=== PATIENT | female | born 1935 | race Caucasian/White ===

== ENCOUNTER → 2016-07-05 | Outpatient (CLI) | payer MEDICARE ==
[2015-08-30 13:25] VITALS: BP 116/63
[~2016-07-05] MED LIST: ALEN70TA5 PO; AMIT25TA PO; ASCO100T4 PO; ASPI-482 PO; ATOR40TA59 PO; BUDE0.5A NEB; CALC-9 PO; CARV3.122 PO; CHOL2000 PO; COPP2CAP PO; ESTR0.62 PO; FORM20VI IH; FURO20TA3 PO; HYDR-2163 PO; IPRA0.2S5 NEB; LEVO100T5 PO; LUTE40CA PO; MAGN400T22 PO; MULT1CAP15 PO; OMEG300C PO; SIMV20TA3 PO; TIOT18CA IH; UBIQ100C PO; VENTOLIN HFA18 GM INH; VIT1CAPS12 PO; ZEAX100P MC; ZINC50TA2 PO
== END | disposition home or self-care (01) ==
LOC: LAB 16:32
PROVIDERS: ATTEND Family Medicine
DX: E11.65 Type 2 diabetes mellitus with hyperglycemia (principal)
CPT/HCPCS: 36415; 83036

== ENCOUNTER → 2016-08-13 | Outpatient (CLI) | payer MEDICARE ==
[2015-08-30 13:25] VITALS: BP 116/63
== END | disposition home or self-care (01) ==
LOC: PMGWOUND 12:33
PROVIDERS: ATTEND Emergency Medicine Undersea and Hyperbaric Medicine
DX: I70.245 Atherosclerosis of native arteries of left leg with ulceration of other part of foot (principal); E11.621 Type 2 diabetes mellitus with foot ulcer; L97.521 Non-pressure chronic ulcer of other part of left foot limited to breakdown of skin; I25.10 Atherosclerotic heart disease of native coronary artery without angina pectoris; E78.5 Hyperlipidemia, unspecified; J43.9 Emphysema, unspecified; I50.22 Chronic systolic (congestive) heart failure; E11.51 Type 2 diabetes mellitus with diabetic peripheral angiopathy without gangrene; Z87.891 Personal history of nicotine dependence
CPT/HCPCS: 93923

== ENCOUNTER → 2016-08-27 | Outpatient (CLI) | payer MEDICARE ==
[2015-08-30 13:25] VITALS: BP 116/63
== END | disposition home or self-care (01) ==
LOC: PMGWOUND 12:29
PROVIDERS: ATTEND Emergency Medicine Undersea and Hyperbaric Medicine
DX: I70.245 Atherosclerosis of native arteries of left leg with ulceration of other part of foot (principal); E11.622 Type 2 diabetes mellitus with other skin ulcer; L97.521 Non-pressure chronic ulcer of other part of left foot limited to breakdown of skin; I25.10 Atherosclerotic heart disease of native coronary artery without angina pectoris; E11.51 Type 2 diabetes mellitus with diabetic peripheral angiopathy without gangrene; J43.9 Emphysema, unspecified; E78.5 Hyperlipidemia, unspecified; Z87.891 Personal history of nicotine dependence
CPT/HCPCS: 99212

== ENCOUNTER → 2016-10-28 | Outpatient (CLI) | payer MEDICARE ==
[2015-08-30 13:25] VITALS: BP 116/63
[~2016-10-28] MED LIST changes: -UBIQ100C PO; +UBIQ100C3 PO
[2016-10-28 16:09] LABS: CREATININE 0.9 mg/dL (0.6-1.0); GFR 60.2
[2016-10-29 07:28] LABS: RHEUMATOID FACTOR <10.0 IU/mL (0.0-13.9)
[2016-10-29 10:22] LABS: VITAMIN D25(OH)TOTAL 44.5 ng/mL (30.0-100.0)
== END | disposition home or self-care (01) ==
LOC: LAB 14:45
PROVIDERS: ATTEND Psychiatry & Neurology Neurology
DX: R52 Pain, unspecified (principal)
CPT/HCPCS: 36415; 82306; 82565; 82607; 84520; 85651; 86431

== ENCOUNTER → 2016-10-31 | Outpatient (CLI) | payer MEDICARE ==
[2015-08-30 13:25] VITALS: BP 116/63
--- NOTE | 2016-10-31 17:33 | RAD ---
CT of the thoracic spine without contrast, 10/31/2009: History: Osteoarthritis, pain Noncontrast scans were obtained with multiplanar reconstructions produced. There is a mild T9 vertebral compression fracture which is unchanged since a CT chest images from 06/06/2015. The other thoracic vertebral heights are well-maintained. There are mild scattered anterior spurs. There are mild degenerative changes involving scattered facet joints bilaterally. No acute fracture or destructive bony lesion is seen. No significant posterior disc bulge or protrusion is evident. The central spinal canal is well-preserved Incidental note is made of emphysematous changes in the lungs with scattered parenchymal scars. There is moderate calcific plaquing of aorta and coronary arteries. IMPRESSION: 1. Mild multilevel degenerative change. 2. Mild T9 vertebral compression fracture. 3. No acute thoracic spine abnormality is detected. PQRS Compliance Statement: One or more of the following individualized dose reduction techniques were utilized for this examination: 1. Automated exposure control 2. Adjustment of the mA and/or kV according to patient size 3. Use of iterative reconstruction technique
--- NOTE | 2016-10-31 18:08 | RAD ---
CT of the cervical spine without contrast, 10/31/2016: History: Osteoarthritis with radiculopathy. Noncontrast scans were obtained with multiplanar reconstructions produced. There is disc space narrowing at all of the levels from C3-4 down through C7-T1. There are moderate anterior and posterior marginal spurs at these levels. There are moderate hypertrophic degenerative changes involving the facet joints bilaterally. No fracture is evident. At C2-3 there is a small posterior disc protrusion at the midline. This is not causing significant central spinal stenosis. The neural foramina are well maintained. At C3-4 there are mild posterior spurs with minimal disc bulging. There is facet joint spurring. The central canal is not significantly stenotic. The spurring is causing mild left foraminal encroachment. At C4-5 there is moderate posterior marginal spurring. This narrows the thecal sac down to an AP diameter of 7 mm at the midline. There is moderate left foraminal narrowing and mild right foraminal narrowing at this. At C5-6 there are prominent broad-based posterior spurs, narrowing the thecal sac down to an AP diameter of approximately 7 mm. The spurring is causing severe bilateral foraminal encroachment. At C6-7 there are moderate posterior spurs. The thecal sac measures 7 mm in AP diameter at the midline. There is moderate bilateral foraminal encroachment due to the spurs. At C7-T1 there is mild posterior marginal spurring. The central spinal canal is not significantly stenotic. The neural foramina are fairly well-maintained. There is extensive calcific plaquing at both carotid bifurcations. IMPRESSION: Moderately severe multilevel degenerative change with moderate associated central spinal stenosis at C4-5, C5-6 and C6-7, as well as bilateral foraminal narrowing at multiple levels as described above. PQRS Compliance Statement: One or more of the following individualized dose reduction techniques were utilized for this examination: 1. Automated exposure control 2. Adjustment of the mA and/or kV according to patient size 3. Use of iterative reconstruction technique
== END | disposition home or self-care (01) ==
LOC: CT 13:52
PROVIDERS: ATTEND Psychiatry & Neurology Neurology
DX: M47.22 Other spondylosis with radiculopathy, cervical region (principal); M47.892 Other spondylosis, cervical region; M48.02 Spinal stenosis, cervical region
CPT/HCPCS: 72125; 72128